=== PATIENT | male | born 1995 | race American Indian/Alaskan Native ===

== ENCOUNTER 2018-08-26 08:50 | Emergency (ER) | payer OTHER ==
[2018-08-26 08:59] VITALS: BP 142/79
[2018-08-26] MEDS ORDERED: IBUPROFEN PO ONE (09:14)
[2018-08-26] MEDS ORDERED: NORCO 7.5/325 PO ONE (09:14)
[2018-08-26] MEDS ORDERED: XYLOCAINE 1%/ EPI 1:100,000 INFILTRATI NR (10:00)
--- NOTE | 2018-08-26 10:30 | Emergency Department Report ---
Abscess Boil HPI - HPI Chief Complaint: Skin/Abscess/Foreign Body Stated Complaint: BOIL ON INNER THIGH Time Seen by Provider: 08/26/18 09:10 Duration: 1 Week Location: Other (right inner thight) Severity: Moderate History: Yes Pain, Yes Previous History, No Fever, No Purulent Drainage, No Numbness, No Foreign Body, No Insect Bite Home Medications: Previous Rx's Medication Instructions Recorded Last Taken Type Chlorhexidine Gluconate [Hibiclens] 1 applic TP BID #1 bottle 08/26/18 Unknown Rx Clindamycin [Clindamycin CAP] 300 mg PO Q8H #21 cap 08/26/18 Unknown Rx HYDROcodone/APAP 5-325 [[place] 1 each PO Q6HR PRN #14 tablet 08/26/18 Unknown Rx 5/325] Ibuprofen [Motrin 800 MG tab] 800 mg PO Q8HR PRN #10 tablet 08/26/18 Unknown Rx Mupirocin Calcium [Bactroban Nasal 1 gm NS BID #1 tube 08/26/18 Unknown Rx 2%] Allergies/Adverse Reactions: Allergies Allergy/AdvReac Type Severity Reaction Status Date / Time No Known Allergies Allergy Verified 08/26/18 09:18 ED Review of Systems ROS: Stated complaint: BOIL ON INNER THIGH Other details as noted in HPI Comment: All other systems reviewed and negative ED Past Medical Hx - Past Medical History Previous Medical History?: No Additional medical history: right hip pain - Surgical History Past Surgical History?: Yes Additional Surgical History: right hip surgery- pin placed - Social History Smoking Status: Never Smoker Substance Use Type: None - Medications Home Medications: Home Medications Medication Instructions Recorded Confirmed Last Taken Type Chlorhexidine Gluconate [Hibiclens] 1 applic TP BID #1 bottle 08/26/18 Unknown Rx Clindamycin [Clindamycin CAP] 300 mg PO Q8H #21 cap 08/26/18 Unknown Rx HYDROcodone/APAP 5-325 [[place] 1 each PO Q6HR PRN #14 tablet 08/26/18 Unknown Rx 5/325] Ibuprofen [Motrin 800 MG tab] 800 mg PO Q8HR PRN #10 tablet 08/26/18 Unknown Rx Mupirocin Calcium [Bactroban Nasal 1 gm NS BID #1 tube 08/26/18 Unknown Rx 2%] ED Abscess Boil Physical Exam - Exam General: Vital signs noted. No distress. Alert and acting appropriately. Front/Back of Body, Lg (Color): 1 - abscess Size: 2 cm Exam: Yes Tenderness, Yes Fluctuance, Yes Surrounding Cellulites/Erythema, Yes Normal Neurologic Exam, Yes Normal Circulation, No Lymphangitis, No Crepitation I & D Note - I & D Note I & D Note: Area was cleaned with Betadine and draped. Lidocaine with epinephrine was used to achieve decent anesthesia. The abscess was incised with an 11 blade scalpel. Purulent material was expressed was moderate amount. Loculations were broken up with hemostat. There is packed with 1 inch gauze and dressed. ED Course Vital Signs 08/26/18 08:56 Temperature 98.1 F Pulse Rate 93 H Respiratory 18 Rate Blood Pressure 142/79 O2 Sat by Pulse 97 Oximetry Critical care attestation.: If time is entered above; I have spent that time in minutes in the direct care of this critically ill patient, excluding procedure time. ED Medical Decision Making - Medical Decision Making She has a history of multiple small abscesses. 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 Patient will have the abscess with cellulitis treated with clindamycin. Also give Bactroban nasal ointment and Hibiclens. ED Disposition Clinical Impression: Abscess Cellulitis Qualifiers: Site of cellulitis: extremity Site of cellulitis of extremity: lower extremity Laterality: right Qualified Code(s): L03.115 - Cellulitis of right lower limb Disposition: TO HOME OR SELFCARE Is pt being admited?: No Does the pt Need Aspirin: No Condition: Stable Instructions: Abscess Incision and Drainage (ED), Abscess (ED) Referrals: GULSHAN SKINNER MD [Primary Care Provider] - 3-5 Days Time of Disposition: 10:30
== END 2018-08-26 10:43 | disposition home or self-care (01) ==
LOC: ED 08:50
DX: L03.115 Cellulitis of right lower limb (principal); Z98.890 Other specified postprocedural states

== ENCOUNTER 2019-01-31 15:50 | Emergency (ER) | payer SELFPAY ==
--- NOTE | 2019-01-31 16:36 | Emergency Department Report ---
Blank Doc - Documentation Documentation: 23-year-old male that presents with left hip pain. This initial assessment/diagnostic orders/clinical plan/treatment(s) is/are subject to change based on patient's health status, clinical progression and re- assessment by fellow clinical providers in the ED. Further treatment and workup at subsequent clinical providers discretion. Patient/guardians urged not to elope from the ED as their condition may be serious if not clinically assessed and managed. Initial orders include: 1- Patient sent to [facility] for further evaluation and treatment 2- xrays
[2019-01-31 16:39] VITALS: BP 137/78
--- NOTE | 2019-01-31 17:06 | XRay Report ---
Left hip-2 views INDICATION: Generalized left hip pain for the past 2 days. COMPARISON: None. IMPRESSION: No acute osseous or soft tissue abnormality. 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 Postoperative c hange in the right femoral neck with no complication. 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 Signer Name: Thony Gonzalez MD Signed: 01/31/2019 5:02 PM Workstation Name: [id number]
[2019-01-31] MEDS ORDERED: KETOROLAC 30 MG/1 ML INJ IM ONE (20:04)
--- NOTE | 2019-01-31 20:54 | Emergency Department Report ---
ED Lower Extremity HPI - General Chief Complaint: Extremity Problem,Nontraumatic Stated Complaint: LEFT HIP PAIN Time Seen by Provider: 01/31/19 16:35 Source: patient Mode of arrival: Ambulatory Limitations: No Limitations - History of Present Illness Initial Comments: This is a 49-year-old -[place] male with a history of osteoarthritis bilateral hips status post ORIF right hip 2 years ago . Pt presents tonight for 5/10 Left hip pain. x 3 days pt denies fall injury or trauma, symptoms are exacerbated by movement and weight beariing, symptoms are relieved by offloading, pt states is out of nsaids as prescribed by pcp, ibuprofen. There is no swelling no deformity Pt remain ambulatory to baseline per patient. MD Complaint: hip injury Onset/Timin -: days(s), unknown (chronic problem for past 5 yrs ) Injury: Hip: Left Type of Injury: unknown Place: home Severity: moderate Severity scale (0 -10): 5 Improves With: rest Worsens With: weight bearing, movement, palpation Associated Symptoms: ambulatory Treatments Prior to Arrival: other (none ) - Related Data Previous Rx's Medication Instructions Recorded Last Taken Type Chlorhexidine Gluconate [Hibiclens] 1 applic TP BID #1 bottle 08/26/18 Unknown Rx Clindamycin [Clindamycin CAP] 300 mg PO Q8H #21 cap 08/26/18 Unknown Rx HYDROcodone/APAP 5-325 [[place] 1 each PO Q6HR PRN #14 tablet 08/26/18 Unknown Rx 5/325] Ibuprofen [Motrin 800 MG tab] 800 mg PO Q8HR PRN #10 tablet 08/26/18 Unknown Rx Mupirocin Calcium [Bactroban Nasal 1 gm NS BID #1 tube 08/26/18 Unknown Rx 2%] Ibuprofen [Motrin 800 MG tab] 800 mg PO Q8HR PRN 10 Days #30 01/31/19 Unknown Rx tablet Prednisone [predniSONE 10 mg 10 mg PO .TAPER #1 tab.ds.pk 01/31/19 Unknown Rx (6-Day Pack, 21 Tabs)] Allergies Allergy/AdvReac Type Severity Reaction Status Date / Time No Known Allergies Allergy Verified 08/26/18 09:18 ED Review of Systems ROS: Stated complaint: LEFT HIP PAIN Other details as noted in HPI Constitutional: denies: chills, fever Eyes: denies: eye pain, eye discharge, vision change ENT: denies: ear pain, throat pain Respiratory: denies: cough, shortness of breath, wheezing Cardiovascular: denies: chest pain, palpitations Endocrine: no symptoms reported Gastrointestinal: denies: abdominal pain, nausea, diarrhea Genitourinary: denies: urgency, dysuria Musculoskeletal: arthralgia, other (left hip pain ). denies: back pain, joint swelling Skin: denies: rash, lesions Neurological: denies: headache, weakness, paresthesias Psychiatric: denies: anxiety, depression Hematological/Lymphatic: denies: easy bleeding, easy bruising ED Past Medical Hx - Past Medical History Previous Medical History?: No Additional medical history: right hip pain - Surgical History Past Surgical History?: Yes Additional Surgical History: right hip surgery- pin placed - Social History Smoking Status: Never Smoker Substance Use Type: None - Medications Home Medications: Home Medications Medication Instructions Recorded Confirmed Last Taken Type Chlorhexidine Gluconate [Hibiclens] 1 applic TP BID #1 bottle 08/26/18 Unknown Rx Clindamycin [Clindamycin CAP] 300 mg PO Q8H #21 cap 08/26/18 Unknown Rx HYDROcodone/APAP 5-325 [[place] 1 each PO Q6HR PRN #14 tablet 08/26/18 Unknown Rx 5/325] Ibuprofen [Motrin 800 MG tab] 800 mg PO Q8HR PRN #10 tablet 08/26/18 Unknown Rx Mupirocin Calcium [Bactroban Nasal 1 gm NS BID #1 tube 08/26/18 Unknown Rx 2%] Ibuprofen [Motrin 800 MG tab] 800 mg PO Q8HR PRN 10 Days #30 01/31/19 Unknown Rx tablet Prednisone [predniSONE 10 mg 10 mg PO .TAPER #1 tab.ds.pk 01/31/19 Unknown Rx (6-Day Pack, 21 Tabs)] ED Physical Exam - General Limitations: No Limitations General appearance: alert, in no apparent distress - Head Head exam: Present: atraumatic, normocephalic - Eye Eye exam: Present: normal appearance, PERRL, EOMI - ENT ENT exam: Present: mucous membranes moist - Neck Neck exam: Present: normal inspection, full ROM. Absent: tenderness - Respiratory Respiratory exam: Present: normal lung sounds bilaterally. Absent: respiratory distress - Cardiovascular Cardiovascular Exam: Present: regular rate, normal rhythm, normal heart sounds. Absent: systolic murmur, diastolic murmur, rubs, gallop - GI/Abdominal GI/Abdominal exam: Present: soft, normal bowel sounds. Absent: distended, tenderness, bruit, hernia - Rectal Rectal exam: Present: deferred - Extremities Exam Extremities exam: Present: normal inspection, full ROM, normal capillary refill. Absent: calf tenderness - Back Exam Back exam: Present: normal inspection, full ROM. Absent: tenderness - Neurological Exam Neurological exam: Present: alert, oriented X3, CN II-XII intact, normal gait, reflexes normal. Absent: motor sensory deficit - Psychiatric Psychiatric exam: Present: normal affect, normal mood - Skin Skin exam: Present: warm, dry, intact, normal color. Absent: rash ED Course Vital Signs 01/31/19 16:37 Temperature 98.6 F Pulse Rate 86 Respiratory 18 Rate Blood Pressure 137/78 O2 Sat by Pulse 99 Oximetry ED Lower Extremity MDM - Radiology Data Radiology results: report reviewed, image reviewed Ordering Physician: TARUN JUSTIN NP Date of Service: 01/31/19 Procedure(s): XR hip 2-3V LT Accession Number(s): [id number] cc: TARUN JUSTIN NP Fluoro Time In Minutes: Left hip-2 views INDICATION: Generalized left hip pain for the past 2 days. COMPARISON: None. IMPRESSION: No acute osseous or soft tissue abnormality. Mild bony prominence at the femoral head/neck junction bilaterally can be seen with a CAM-type deformity associated with SAVI. Postoperative change in the right femoral neck with no complication. 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 Signer Name: Thony Gonzalez MD Signed: 01/31/2019 5:02 PM Workstation Name: [id number] Transcribed By: ELMA Dictated By: Thony Gonzalez MD Electronically Authenticated By: Thony Gonzalez MD Signed Date/Time: 01/31/191701 DD/ 99 TD/TT: - Medical Decision Making X-ray shows degenerative changes no acute fracture no soft tissue abnormalities. pain is improved, then DC'd to home a prescription for NSAID and prednisone. Follow up with orthopedic surgery in 2 to 3 days for same patient verbalizes agreement and understanding of discharge Critical care attestation.: If time is entered above; I have spent that time in minutes in the direct care of this critically ill patient, excluding procedure time. ED Disposition Clinical Impression: Arthralgia of left hip Disposition: TO HOME OR SELFCARE Is pt being admited?: No Does the pt Need Aspirin: No Condition: Stable Instructions: Arthralgia (ED), Musculoskeletal Pain (ED) Prescriptions: Ibuprofen [Motrin 800 MG tab] 800 mg PO Q8HR PRN 10 Days #30 tablet PRN Reason: Pain , Severe (7-10) Prednisone [predniSONE 10 mg (6-Day Pack, 21 Tabs)] 10 mg PO .TAPER #1 tab.ds.pk Referrals: DANIELA CARRILLO MD [Staff Physician] - 3-5 Days Forms: Work/School Release Form(ED) Time of Disposition: 21:23
== END 2019-01-31 21:10 | disposition home or self-care (01) ==
LOC: ED 15:50
DX: M25.552 Pain in left hip (principal); Z79.899 Other long term (current) drug therapy
CPT/HCPCS: 73502; 96372; 99283; J1885

== ENCOUNTER 2019-04-24 14:26 | Emergency (ER) | payer SELFPAY ==
--- NOTE | 2019-04-24 15:28 | Emergency Department Report ---
ED ENT HPI - General Chief complaint: Upper Respiratory Infection Stated complaint: COUGH Time Seen by Provider: 04/24/19 15:21 Source: patient Mode of arrival: Ambulatory Limitations: No Limitations - History of Present Illness Initial comments: Patient is 23 years old male with no significant past medical history. Patient presented to the ER complaining of sore throat for the last 3 days. Patient stated that his girlfriend was diagnosed with strep throat 2 days ago and he felt like he having the same symptoms. Patient denied any fever or chills. Patient stated that he is nauseated and he vomited one time. He denies any abdominal pain, chest pain or shortness of breath. MD complaint: sore throat -: days(s) (3) - Related Data Previous Rx's Medication Instructions Recorded Last Taken Type Chlorhexidine Gluconate [Hibiclens] 1 applic TP BID #1 bottle 08/26/18 Unknown Rx Clindamycin [Clindamycin CAP] 300 mg PO Q8H #21 cap 08/26/18 Unknown Rx HYDROcodone/APAP 5-325 [[place] 1 each PO Q6HR PRN #14 tablet 08/26/18 Unknown Rx 5/325] Ibuprofen [Motrin 800 MG tab] 800 mg PO Q8HR PRN #10 tablet 08/26/18 Unknown Rx Mupirocin Calcium [Bactroban Nasal 1 gm NS BID #1 tube 08/26/18 Unknown Rx 2%] Ibuprofen [Motrin 800 MG tab] 800 mg PO Q8HR PRN 10 Days #30 01/31/19 Unknown Rx tablet Prednisone [predniSONE 10 mg 10 mg PO .TAPER #1 tab.ds.pk 01/31/19 Unknown Rx (6-Day Pack, 21 Tabs)] Allergies Allergy/AdvReac Type Severity Reaction Status Date / Time No Known Allergies Allergy Verified 08/26/18 09:18 ED Dental HPI - General Chief complaint: Upper Respiratory Infection Stated complaint: COUGH Time Seen by Provider: 04/24/19 15:21 Source: patient Mode of arrival: Ambulatory Limitations: No Limitations - Related Data Previous Rx's Medication Instructions Recorded Last Taken Type Chlorhexidine Gluconate [Hibiclens] 1 applic TP BID #1 bottle 08/26/18 Unknown Rx Clindamycin [Clindamycin CAP] 300 mg PO Q8H #21 cap 08/26/18 Unknown Rx HYDROcodone/APAP 5-325 [[place] 1 each PO Q6HR PRN #14 tablet 08/26/18 Unknown Rx 5/325] Ibuprofen [Motrin 800 MG tab] 800 mg PO Q8HR PRN #10 tablet 08/26/18 Unknown Rx Mupirocin Calcium [Bactroban Nasal 1 gm NS BID #1 tube 08/26/18 Unknown Rx 2%] Ibuprofen [Motrin 800 MG tab] 800 mg PO Q8HR PRN 10 Days #30 01/31/19 Unknown Rx tablet Prednisone [predniSONE 10 mg 10 mg PO .TAPER #1 tab.ds.pk 01/31/19 Unknown Rx (6-Day Pack, 21 Tabs)] Allergies Allergy/AdvReac Type Severity Reaction Status Date / Time No Known Allergies Allergy Verified 08/26/18 09:18 ED Review of Systems ROS: Stated complaint: COUGH Other details as noted in HPI Comment: All other systems reviewed and negative Constitutional: denies: chills, fever ENT: throat pain Cardiovascular: denies: chest pain, palpitations Gastrointestinal: nausea, vomiting. denies: abdominal pain, diarrhea, constipation, hematemesis, hematochezia Musculoskeletal: denies: back pain Neurological: denies: headache, weakness, numbness, paresthesias, confusion ED Past Medical Hx - Past Medical History Additional medical history: right hip pain - Surgical History Past Surgical History?: Yes Additional Surgical History: right hip surgery- pin placed - Social History Smoking Status: Never Smoker Substance Use Type: None - Medications Home Medications: Home Medications Medication Instructions Recorded Confirmed Last Taken Type Chlorhexidine Gluconate [Hibiclens] 1 applic TP BID #1 bottle 08/26/18 Unknown Rx Clindamycin [Clindamycin CAP] 300 mg PO Q8H #21 cap 08/26/18 Unknown Rx HYDROcodone/APAP 5-325 [[place] 1 each PO Q6HR PRN #14 tablet 08/26/18 Unknown Rx 5/325] Ibuprofen [Motrin 800 MG tab] 800 mg PO Q8HR PRN #10 tablet 08/26/18 Unknown Rx Mupirocin Calcium [Bactroban Nasal 1 gm NS BID #1 tube 08/26/18 Unknown Rx 2%] Ibuprofen [Motrin 800 MG tab] 800 mg PO Q8HR PRN 10 Days #30 01/31/19 Unknown Rx tablet Prednisone [predniSONE 10 mg 10 mg PO .TAPER #1 tab.ds.pk 01/31/19 Unknown Rx (6-Day Pack, 21 Tabs)] ED Physical Exam - General Limitations: No Limitations General appearance: alert, in no apparent distress - Head Head exam: Present: atraumatic, normocephalic, normal inspection - Eye Eye exam: Present: normal appearance - ENT ENT exam: Present: normal exam, mucous membranes moist - Neck Neck exam: Present: normal inspection, full ROM. Absent: tenderness, meningismus, lymphadenopathy, thyromegaly - Respiratory Respiratory exam: Present: normal lung sounds bilaterally - Cardiovascular Cardiovascular Exam: Present: regular rate, normal rhythm, normal heart sounds - GI/Abdominal GI/Abdominal exam: Present: soft. Absent: distended, tenderness, guarding, rebound, rigid - Extremities Exam Extremities exam: Present: normal inspection, full ROM, normal capillary refill. Absent: tenderness - Back Exam Back exam: Absent: CVA tenderness (R), CVA tenderness (L) - Neurological Exam Neurological exam: Present: alert, oriented X3, CN II-XII intact, normal gait. Absent: motor sensory deficit - Skin Skin exam: Present: warm, intact, normal color ED Medical Decision Making - Medical Decision Making Patient is 23 years old male with no significant past medical history. Patient presented to the ER complaining of sore throat for the last 3 days. Patient stated that his girlfriend was diagnosed with strep throat 2 days ago and he felt like he having the same symptoms. Patient denied any fever or chills. Patient stated that he is nauseated and he vomited one time. He denies any abdominal pain, chest pain or shortness of breath. Strep test is negative. No vomiting observed in the ER. Patient given prescription for Naprosyn and Zofran and advised to follow-up with his primary care physician in the next 2 to 3 days and to return to the ER if he develop any new symptoms. Critical care attestation.: If time is entered above; I have spent that time in minutes in the direct care of this critically ill patient, excluding procedure time. ED Disposition Clinical Impression: Sore throat, Vomiting Disposition: DC- TO HOME OR SELFCARE Is pt being admited?: No Condition: Stable Instructions: Viral Syndrome (ED) Referrals: GULSHAN SKINNER MD [Primary Care Provider] - 3-5 Days
[2019-04-24 18:55] VITALS: BP 127/86
== END 2019-04-24 18:52 | disposition home or self-care (01) ==
LOC: ED 14:26
DX: J02.9 Acute pharyngitis, unspecified (principal)
CPT/HCPCS: 87116; 87430